=== PATIENT | male | born 1940 | race Caucasian/White ===

== ENCOUNTER 2023-11-12 07:36 | Day surgery (SDC) | payer OTHER ==
[2023-11-09 12:53] VITALS: BMI 24.0
[2023-11-12] MEDS ORDERED: PROPOFOL 160 ML ONE (07:46)
[2023-11-12] MEDS ORDERED: LIDOCAINE HCL/PF 2% SDV 5ML VIAL ONE (07:46)
[2023-11-12 09:42] VITALS: RESP 20; TEMP 97
[2023-11-12 09:44] VITALS: BP 147/82; PULSE 78
== END 2023-11-12 09:30 | disposition home or self-care (01) ==
LOC: FASU-ENDO 07:36
PROVIDERS: ATTEND Internal Medicine Gastroenterology
PROC: 0DJD8ZZ Inspection of Lower Intestinal Tract, Via Natural or Artificial Opening Endoscopic (ICD-10-PCS; principal; 2023-11-12 08:55)
DX: K62.5 Hemorrhage of anus and rectum (principal); R63.4 Abnormal weight loss; K57.30 Diverticulosis of large intestine without perforation or abscess without bleeding; K64.0 First degree hemorrhoids